=== PATIENT | male | born 1990 | race Caucasian/White ===

== ENCOUNTER 2024-06-02 19:38 | Inpatient (IN) | payer SELFPAY ==
[~2024-06-02 19:38] MED LIST: Iopamidol-370 76% 500 ML MDV (1 ML CHARGE) ONE
[2024-06-02 20:01] LABS: %Basophils 0.7 % (0.0-1.0); %Eosinophils 4.5 % (0.0-10.0); %Lymphocytes 36.5 % (21.0-51.0); %Monocytes 6.5 % (0.0-10.0); %Neutrophils 51.2 % (42.0-75.0); Hematocrit 40.9 % (42.0-52.0); Hemoglobin 13.9 g/dL (14.0-18.0); Mean Corpuscular Hemoglobin 28.7 pg (27.0-31.0); Mean Corpuscular Volume 84.5 fL (78.0-98.0); Mean Platelet Volume 9.8 fL (7.4-10.4); Platelet Count 355 10x3/uL (130-400); RBC Distribution Width 12.9 % (11.5-14.5); Red Blood Cell (RBC) Count 4.84 mill/uL (4.70-6.10)
[2024-06-02 20:13] LABS: Alcohol Less than 10.0 mg/dL (Less than 10)
[2024-06-02 20:16] LABS: ALT (SGPT) 8 U/L (8-55); AST (SGOT) 21 U/L (5-34); Albumin 4.3 g/dL (3.5-5.0); Alkaline Phosphatase 64 U/L (40-110); Anion Gap 14 mmol/L (10-20); BUN (Urea Nitrogen) 16 mg/dL (8.9-20.6); Bilirubin, Total 0.4 mg/dL (0.2-1.2); Calc. Creatinine Clearance 0 mL/min (70-130); Carbon Dioxide 21 mmol/L (22-29); Chloride 107 mmol/L (98-107); Estimated GFR 98; Globulin 2.6 g/dL (2.4-3.5); Glucose 155 mg/dL (70-105); Potassium 3.1 mmol/L (3.5-5.1); Protein, Total 6.9 g/dL (6.0-8.3); Sodium 139 mmol/L (136-145)
[2024-06-02] MEDS ORDERED: Morphine 2 MG/ML VIAL ONE ×2 (20:18→22:07)
[2024-06-02] MEDS ORDERED: Boostrix 0.5 ML (Tdap) VIAL (>/=7 yrs of age) ONE (20:19)
[2024-06-02] MEDS ORDERED: Ondansetron PF 4 MG/2 ML Vial ONE ×2 (20:19→22:07)
[2024-06-02 21:31] LABS: PTT 25.5 sec (22.9-36.1); Prothrombin Time 12.9 sec (12.0-14.7)
[2024-06-02] MEDS ORDERED: Dextrose 5% in Water 1,000 ML IV PRN (22:05)
[2024-06-02] MEDS ORDERED: hydrALAZINE 20 MG/ML VIAL SLOW IVP PRN (22:05)
[2024-06-02] MEDS ORDERED: Acetaminophen 325 MG TAB PO PRN (22:05)
[2024-06-02] MEDS ORDERED: Glucagon 1 MG/ML KIT IM PRN (22:05)
[2024-06-02] MEDS ORDERED: Dextrose 50% Abboject 50 ML SYRINGE SLOW IVP PRN (22:05)
[2024-06-02] MEDS: levETIRAcetam 500 MG (5 mL) VIAL SLOW IVP SCH (23:26)
[2024-06-02] MEDS: Acetaminophen/Codeine 30-300mg Tablet PO SCH (23:26)
[2024-06-02 23:49] VITALS: BMI 25.8
[2024-06-03] MEDS: hydrALAZINE 20 MG/ML VIAL SLOW IVP PRN (00:32)
[2024-06-03] MEDS: Acetaminophen/Codeine 30-300mg Tablet PO PRN (04:24)
[2024-06-03] MEDS: Morphine 2 MG/ML VIAL SLOW IVP PRN (05:59)
[2024-06-03 06:48] LABS: #Basophils Less than 0.03 10x3/uL (0.0-0.2); #Eosinophils Less than 0.03 10x3/uL (0.0-0.7); %Basophils 0.2 % (0.0-1.0); %Eosinophils 0.1 % (0.0-10.0); %Lymphocytes 7.1 % (21.0-51.0); %Monocytes 6.8 % (0.0-10.0); %Neutrophils 85.4 % (42.0-75.0); Hematocrit 39.5 % (42.0-52.0); Hemoglobin 13.2 g/dL (14.0-18.0); Mean Corpuscular HGB CONC 33.4 g/dL (32.0-36.0); Mean Corpuscular Hemoglobin 28.2 pg (27.0-31.0); Mean Corpuscular Volume 84.4 fL (78.0-98.0); Platelet Count 318 10x3/uL (130-400); RBC Distribution Width 13.1 % (11.5-14.5); Red Blood Cell (RBC) Count 4.68 mill/uL (4.70-6.10)
[2024-06-03 07:22] LABS: Anion Gap 14 mmol/L (10-20); BUN (Urea Nitrogen) 13 mg/dL (8.9-20.6); Calc. Creatinine Clearance 146 mL/min (70-130); Calcium 9.1 mg/dL (7.8-10.44); Carbon Dioxide 23 mmol/L (22-29); Chloride 105 mmol/L (98-107); Estimated GFR 116; Glucose 127 mg/dL (70-105); Potassium 3.7 mmol/L (3.5-5.1); Sodium 138 mmol/L (136-145)
[2024-06-03] MEDS: Potassium Chloride 20 MEQ in Premix 1 BAG IVPB SCH (08:28)
[2024-06-03] MEDS: levETIRAcetam 500 MG (5 mL) VIAL SLOW IVP SCH (08:29)
[2024-06-03] MEDS: Famotidine/PF 20 mg/2ml Vial SLOW IVP SCH (08:29)
[2024-06-03] MEDS: Silver Sulfadiazine 50 GM TUBE TOP SCH (15:33)
[2024-06-03] MEDS: Morphine 4 MG/ML VIAL SLOW IVP PRN (20:01)
[2024-06-03] MEDS: Ondansetron PF 4 MG/2 ML Vial IVP PRN (21:01)
[2024-06-04] MEDS: Ondansetron ODT 4 MG TAB PO PRN (02:01)
[2024-06-04] MEDS: Senokot S 8.6-50 MG TAB PO SCH (08:24)
[2024-06-04] MEDS: Silver Sulfadiazine 50 GM TUBE TOP SCH (08:26)
[2024-06-04] MEDS: Cyclobenzaprine 10 MG TAB PO PRN (13:05)
[2024-06-04] MEDS: Acetaminophen/Codeine 30-300mg Tablet PO PRN (20:27)
[2024-06-05 08:14] VITALS: BP 111/63; TEMP 97.8
== END 2024-06-05 11:57 | disposition home or self-care (01) | DRG 84 ==
LOC: ERS 19:38 → CCU 21:22 → OBSVTOIN 22:15 → SURG A 06-04 09:10
PROVIDERS: ADMIT Surgery; ATTEND Surgery
DX: S06.5XAA Traumatic subdural hemorrhage with loss of consciousness status unknown, initial encounter (principal); S06.6XAA Traumatic subarachnoid hemorrhage with loss of consciousness status unknown, initial encounter; V23.49XA Other motorcycle driver injured in collision with car, pick-up truck or van in traffic accident, initial encounter; Y93.55 Activity, bike riding; Y92.410 Unspecified street and highway as the place of occurrence of the external cause; S00.11XA Contusion of right eyelid and periocular area, initial encounter; S80.211A Abrasion, right knee, initial encounter; S02.91XA Unspecified fracture of skull, initial encounter for closed fracture; S02.19XA Other fracture of base of skull, initial encounter for closed fracture; S02.0XXA Fracture of vault of skull, initial encounter for closed fracture; S42.031A Displaced fracture of lateral end of right clavicle, initial encounter for closed fracture; R40.2362 Coma scale, best motor response, obeys commands, at arrival to emergency department; R40.2132 Coma scale, eyes open, to sound, at arrival to emergency department; R40.2252 Coma scale, best verbal response, oriented, at arrival to emergency department; R11.0 Nausea
CPT/HCPCS: 36415; 36416; 70450; 71260; 72125; 74177; 80048; 80053; 80307; 83605; 85025; 85610; 85730; 90715; 94760; G0390; J0360; J1953; J2272; J2405; J3480; J3490; Q0162; Q9967